=== PATIENT | male | born 1975 | race Caucasian/White ===

== ENCOUNTER 2018-06-11 16:00 | Emergency (ER) | payer MEDICAID, OTHER ==
[~2018-06-11] VITALS: Ht 177.8 cm; Wt 75.9 kg
[2018-06-11] MEDS ORDERED: GUAI120015 PO (17:23)
[2018-06-11] MEDS ORDERED: DOXY100C43 PO (17:23)
[2018-06-11] MEDS ORDERED: ALBU6.7H INH (17:23)
[2018-06-11 17:31] VITALS: BP 152/81
== END 2018-06-11 17:33 | disposition home or self-care (01) ==
LOC: ER 16:01
DX: J18.9 Pneumonia, unspecified organism (principal); F15.10 Other stimulant abuse, uncomplicated; Z91.013 Allergy to seafood
CPT/HCPCS: 71046; 99283

== ENCOUNTER 2018-08-03 19:10 | Emergency (ER) | payer MEDICAID ==
[~2018-08-03] VITALS: Ht 177.8 cm; Wt 76.0 kg
[~2018-08-03 19:10] MED LIST: ALBU6.7H INH; GUAI120015 PO
[2018-08-03] MEDS ORDERED: IBUP-1984 PO (21:11)
[2018-08-03] MEDS ORDERED: SULF1TAB49 PO (21:11)
== END 2018-08-03 21:34 | disposition home or self-care (01) ==
LOC: ER 19:11
DX: L02.31 Cutaneous abscess of buttock (principal); F15.90 Other stimulant use, unspecified, uncomplicated; Z59.0 Homelessness; Z91.013 Allergy to seafood
CPT/HCPCS: 99283

== ENCOUNTER 2018-09-03 10:04 | Emergency (ER) | payer MEDICAID ==
[~2018-09-03] VITALS: Ht 177.8 cm; Wt 76.4 kg
[~2018-09-03 10:04] MED LIST changes: +IBUP-1984 PO
[2018-09-03 10:15] VITALS: BP 162/87
[2018-09-03] MEDS ORDERED: SULF1TAB49 PO (21:56)
== END 2018-09-03 12:25 | disposition left against medical advice (07) ==
LOC: ER 10:05
DX: L02.31 Cutaneous abscess of buttock (principal); Z53.21 Procedure and treatment not carried out due to patient leaving prior to being seen by health care provider

== ENCOUNTER 2018-09-03 20:00 | Emergency (ER) | payer MEDICAID ==
[~2018-09-03] VITALS: Ht 177.8 cm; Wt 76.0 kg
[2018-09-03 20:07] VITALS: BP 135/90
[2018-09-03] MEDS ORDERED: LIDOcaine 1% w/epiNEPHrine 1:200,000 30ml vial IM ONE (21:50)
[2018-09-03] MEDS ORDERED: SULF1TAB49 PO (21:56)
== END 2018-09-03 22:43 | disposition home or self-care (01) ==
LOC: ER 20:01
DX: L02.31 Cutaneous abscess of buttock (principal); F15.90 Other stimulant use, unspecified, uncomplicated; Z91.030 Bee allergy status; Z79.899 Other long term (current) drug therapy; Z59.0 Homelessness
CPT/HCPCS: 10060; 99283; J3490

== ENCOUNTER 2020-12-17 17:46 | Emergency (ER) | payer SELFPAY ==
[~2020-12-17] VITALS: Ht 177.8 cm; Wt 74.2 kg
[~2020-12-17 17:46] MED LIST changes: -ALBU6.7H INH; +ALBU6.7H9 INH; -IBUP-1984 PO
[2020-12-17 18:01] VITALS: BP 122/87
== END 2020-12-17 19:14 | disposition left against medical advice (07) ==
LOC: ER 17:47
DX: L02.01 Cutaneous abscess of face (principal); L02.416 Cutaneous abscess of left lower limb; L02.415 Cutaneous abscess of right lower limb; L02.31 Cutaneous abscess of buttock; Z53.21 Procedure and treatment not carried out due to patient leaving prior to being seen by health care provider

== ENCOUNTER 2021-01-15 19:43 | Emergency (ER) | payer OTHER ==
[~2021-01-15] VITALS: Ht 177.8 cm; Wt 162.0 kg
[2021-01-15 19:46] VITALS: BP 161/87
[2021-01-15] MEDS ORDERED: CefTRIAXone 1000mg IM Kit (w/lidocaine diluent) IM STA (23:03)
[2021-01-15] MEDS ORDERED: PENICILLIN G BENZATHINE 2,400,000 UNIT/4 ML SYRINGE IM STA (23:03)
[2021-01-15] MEDS ORDERED: azithromycin 250mg tablet PO ONE (23:05)
[2021-01-15] MEDS ORDERED: MYCOL15CR TOP (23:12)
== END 2021-01-16 00:17 | disposition home or self-care (01) ==
LOC: ER 19:44
DX: A53.9 Syphilis, unspecified (principal); L30.4 Erythema intertrigo; R10.32 Left lower quadrant pain; R21 Rash and other nonspecific skin eruption; F15.90 Other stimulant use, unspecified, uncomplicated; Z59.00 Homelessness unspecified; Z91.013 Allergy to seafood; Z91.018 Allergy to other foods; Z79.899 Other long term (current) drug therapy
CPT/HCPCS: 36415; 86592; 87491; 87591; 96372; 99284; J0561; J0696; 90471

== ENCOUNTER 2021-08-21 03:03 | Emergency (ER) | payer SELFPAY ==
[~2021-08-21] VITALS: Ht 177.8 cm; Wt 74.2 kg
[2021-08-21] MEDS ORDERED: cephalexin 500mg capsule PO ONE (04:05)
[2021-08-21] MEDS ORDERED: CEPH-585 PO (04:05)
[2021-08-21 04:20] VITALS: BP 122/89
--- NOTE | 2021-08-21 04:30 | NUR ---
PT STATES HE OBTAINED LEG WOUNDS WHILE CLEANING THE RIVER FOR A [place] [facility] [place] [facility] PROGRAM.
== END 2021-08-21 05:44 | disposition home or self-care (01) ==
LOC: ER 03:04
DX: L03.115 Cellulitis of right lower limb (principal); F15.10 Other stimulant abuse, uncomplicated; Z59.00 Homelessness unspecified; Z91.013 Allergy to seafood; Z91.040 Latex allergy status; Z79.899 Other long term (current) drug therapy
CPT/HCPCS: 99283

== ENCOUNTER 2022-06-28 20:33 | Emergency (ER) | payer MEDICAID ==
[~2022-06-28 20:33] MED LIST changes: +ALBU6.7H14 INH; -ALBU6.7H9 INH; +CEPH-585 PO
== END 2022-06-28 21:22 | disposition left against medical advice (07) ==
LOC: ER 20:33
DX: N28.9 Disorder of kidney and ureter, unspecified (principal); Z53.21 Procedure and treatment not carried out due to patient leaving prior to being seen by health care provider

== ENCOUNTER 2023-06-01 15:50 | Emergency (ER) | payer MEDICAID ==
[~2023-06-01] VITALS: Ht 175.3 cm; Wt 81.7 kg
[~2023-06-01 15:50] MED LIST changes: -CEPH-585 PO
[2023-06-01 15:55] VITALS: BP 198/148; PULSE 97; TEMP 98.4; O2SAT 98
[2023-06-01 16:05] VITALS: RESP 18
[2023-06-01] MEDS: ketorolac trometh inj. 60 MG/2 ML VIAL IM ONE (16:05)
[2023-06-01] MEDS: CefTRIAXone 1000mg IM Kit (w/lidocaine diluent) IM ONE (16:05)
[2023-06-01] MEDS ORDERED: PERM60CR19 TOP (16:12)
[2023-06-01] MEDS ORDERED: CLIN300C71 PO (16:12)
== END 2023-06-01 17:34 | disposition home or self-care (01) ==
LOC: ER 15:51
DX: L03.90 Cellulitis, unspecified (principal); B86 Scabies; F15.90 Other stimulant use, unspecified, uncomplicated; Z59.00 Homelessness unspecified; Z91.013 Allergy to seafood; Z79.899 Other long term (current) drug therapy; Z79.2 Long term (current) use of antibiotics
CPT/HCPCS: 96372; 99284; J0696; J1885

== ENCOUNTER 2023-12-07 02:08 | Emergency (ER) | payer MEDICAID ==
[~2023-12-07] VITALS: Ht 177.8 cm; Wt 73.6 kg
[2023-12-07 02:11] VITALS: BP 136/84; PULSE 89; RESP 14; TEMP 98.6; O2SAT 98
== END 2023-12-07 04:40 | disposition left against medical advice (07) ==
LOC: ER 02:09
DX: M79.631 Pain in right forearm (principal); Z91.013 Allergy to seafood; Z91.018 Allergy to other foods; Z53.21 Procedure and treatment not carried out due to patient leaving prior to being seen by health care provider